=== PATIENT | female | born 1990 | race African-American/Black ===

== ENCOUNTER 2021-09-08 17:11 | Emergency (ER) | payer MEDICAID ==
[~2021-09-08] VITALS: Ht 165.1 cm; Wt 109.0 kg
[2021-09-08 17:48] VITALS: BP 142/92
[2021-09-08] MEDS ORDERED: IBUP-2029 MT (19:58)
[2021-09-08] MEDS ORDERED: AMOX1TAB16 MT (19:58)
== END 2021-09-08 23:15 | disposition home or self-care (01) ==
LOC: ER 17:11
DX: J32.9 Chronic sinusitis, unspecified (principal)
CPT/HCPCS: 99283